=== PATIENT | female | born 1950 ===

== ENCOUNTER 2018-03-01 10:33 | Emergency (ER) | payer OTHER ==
[~2018-03-01] VITALS: Ht 162.6 cm; Wt 82.1 kg
[2018-03-01] MEDS ORDERED: LASIX20 MG (10:53)
[2018-03-01] MEDS ORDERED: LANTUS SOL100 UNIT/1 (10:53)
[2018-03-01] MEDS ORDERED: SYNTHROID200 MCG (10:53)
== END 2018-03-01 14:59 | disposition home or self-care (01) ==
LOC: ER 10:33
DX: R53.81 Other malaise (principal)

== ENCOUNTER 2023-12-29 07:13 | Outpatient (CLI) | payer OTHER ==
[~2023-12-29 07:13] MED LIST: LANTUS SOL100 UNIT/1; LASIX20 MG; SYNTHROID200 MCG
== END 2023-12-29 07:14 | disposition home or self-care (01) ==
LOC: NUCLEAR 07:13
PROVIDERS: ATTEND Internal Medicine
DX: I11.9 Hypertensive heart disease without heart failure (principal)
CPT/HCPCS: 78452; 93017; A9500; J0153